=== PATIENT | male | born 1955 | race Hispanic/Latino ===

== ENCOUNTER 2016-09-21 22:11 | Observation (INO) | payer OTHER ==
--- NOTE | 2016-09-21 22:52 | ED PDOC ---
HPI: Chest Pain Time Seen by Provider: 09/21/16 22:31 Chief Complaint (Nursing): Palpitations Chief Complaint (Provider): plapitations History Per: Patient Additional Complaint(s): 61 yo male, PMH of Bradycardia, Lymphoma, Thyroidectomy and repair of a carotid dissection,presents to ED with complaints of developing Palpitations, nausea and chest discomfort around 5 pm. Pt reports that the discomfort has resolved; however, the palpitations remain intermittent. No SOB, no diaphoresis. Pt took 1 81 mg tab Aspirin [employer] Past Medical History Reviewed: Nursing Documentation, Vital Signs Vital Signs: Last Vital Signs Temp 98.5 F 09/21/16 22:26 Pulse 57 L 09/21/16 22:26 Resp 16 09/21/16 22:26 BP 141/94 H 09/22/16 00:13 Pulse Ox 100 09/21/16 22:52 - Medical History PMH: Hypothyroidism Other PMH: Lynphoma - Surgical History Surgical History: Carotid Endarterectomy Other surgeries: thyroidectomy - Family History Family History: States: [place], Other (Sister with Pacemaker s/p syncopal episodes) - Living Arrangements Living Arrangements: With Family - Social History Current smoker - smoking cessation education provided: No Ex-Smoker (has not smoked in the last 12 months): Yes (quit in 1982) Alcohol: Social Drugs: Denies - Home Medications Home Medications: Ambulatory Orders Medication Instructions Recorded Levothyroxine [Synthroid] 1 tab PO DAILY 09/21/16 - Allergies Allergies/Adverse Reactions: Allergies Allergy/AdvReac Type Severity Reaction Status Date / Time No Known Allergies Allergy Verified 09/21/16 22:26 MANJINDER Risk Score for UA/NSTEMI - MANJINDER Risk Score Age > 64: NO 3 or more CAD Risk Factors: NO Known CAD (Stenosis greater than 50%): NO Aspirin use in past 7 days: YES Severe Angina: NO EKG ST changes greater than 0.5mm: NO Positive Cardiac Marker: NO MANJINDER Score: 1 Risk %: 5% Curb-65 Severity Score - CURB-65 Severity Score Confusion: No Bun >19mg/dl (>7mmol/L): No Respiratory Rate greater than/equal to 30: No Systolic BP <90 or Diastolic BP less than/equal 60mmHg: No Age >64: No Curb-65 Score: 0 Percentage 30-day mortality: 0.6% Wells Criteria for PE - Wells Criteria for Pulmonary Embolism Clinical Signs and Symptoms of DVT: No P.E is #1 Diagnosis, or Equally Likely: No Heart Rate >100: No Immobilization at least 3 days;Surgery previous 4 weeks: No Previous, objectively diagnosed PE or DVT: No Hemoptysis: No Malignancy w/treatment within 6 months, or palliative: No Total Score: 0 Review of Systems ROS Statement: Except As Marked, All Systems Reviewed And Found Negative Cardiovascular: Positive for: Chest Pain Physical Exam - Reviewed Nursing Documentation Reviewed: Yes Vital Signs Reviewed: Yes - Physical Exam Appears: Positive for: Well, Non-toxic, No Acute Distress Head Exam: Positive for: ATRAUMATIC, NORMAL INSPECTION, NORMOCEPHALIC Skin: Positive for: Normal Color, Warm, DRY Eye Exam: Positive for: EOMI, Normal appearance, PERRL ENT: Positive for: Normal ENT Inspection Neck: Positive for: Normal, Painless ROM Cardiovascular/Chest: Positive for: Regular Rate, Rhythm Respiratory: Positive for: CNT, Normal Breath Sounds Gastrointestinal/Abdominal: Positive for: Normal Exam, Bowel Sounds, Soft Back: Positive for: Normal Inspection Extremity: Positive for: Normal ROM Neurologic/Psych: Positive for: Alert, Oriented - Laboratory Results Result Diagrams: 09/21/16 23:20 09/21/16 23:20 - ECG O2 Sat by Pulse Oximetry: 100 Medical Decision Making Medical Decision Making: Pt placed on vehicle monitor technician, vitals remain stable P: 52 BP: 148/75 POX: 98% on RA EKG: SB at 57 bpm, no LVH, no [place] deviation, no acute ST changes, as read by ED MD Pt without complaints of pain at this time, analgesics withheld. Pt administered Zofran for pain. CBC and COMP resulted WNL Troponin (-) TSH 1.58 ED MD, Dr. Saez, presented to see and evlauate Pt at beside. Agreed with tele- obs at this time. Pt's PMD if out of area, call placed to [facility]. Arrangements made for tele- obs. Cardiac consult placed with Dr. Barreto. Disposition - Clinical Impression Clinical Impression: Palpitations - Patient ED Disposition Is Patient to be Admitted: Yes - Disposition Disposition Time: 01:08 Condition: STABLE - Pt Status Changed To: Hospital Disposition Of: Observation - POA Present On Arrival: None
[2016-09-21 23:44] LABS: BASO % 0.4 % (0.0-2.0); EOS # 0.1 K/uL (0.0-0.7); EOS % 1.8 % (0.0-4.0); HEMATOCRIT 46.7 % (35.0-51.0); LYMPH # 2.2 K/uL (1.0-4.3); LYMPH % 36.7 % (20.0-40.0); MEAN CELL VOLUME 85.3 fl (80.0-94.0); MEAN CORPUSCULAR HEMOGLOBIN 28.4 pg (27.0-31.0); MEAN CORPUSCULAR HGB CONC 33.3 g/dL (33.0-37.0); MEAN PLATELET VOLUME 9.3 fl (7.2-11.7); MONO # 0.6 K/uL (0.0-0.8); MONO % 9.8 % (0.0-10.0); NEUT # 3.1 K/uL (1.8-7.0); NEUT % 51.3 % (50.0-75.0); NRBC % 0.1 % (0.0-0.0); RED CELL DISTRIBUTION WIDTH 13.7 % (11.5-14.5)
[2016-09-21 23:45] LABS: RBC URINE < 1 /hpf (0-3); URINE BILIRUBIN NEGATIVE (NEGATIVE); URINE BLOOD NEGATIVE (NEGATIVE); URINE COLOR STRAW (YELLOW); URINE GLUCOSE (UA) NEG (Normal); URINE KETONE NEGATIVE (NEGATIVE); URINE LEUKOCYTE ESTERASE NEG Leu/uL (Negative); URINE PROTEIN NEGATIVE (NEGATIVE); URINE UROBILINOGEN 0.2-1.0 mg/dL (0.2-1.0); WBC URINE < 1 /hpf (0-5)
[2016-09-21 23:54] LABS: ALB/GLOB RATIO 1.3 (1.0-2.1); ALKALINE PHOSPHATASE 73 U/L (38-126); ALT/SGPT 30 U/L (21-72); AST/SGOT 30 U/L (17-59); BLOOD UREA NITROGEN 21 mg/dl (9-20); CALCIUM 9.2 mg/dL (8.4-10.2); CARBON DIOXIDE 27 mmol/L (22-30); CHLORIDE 101 mmol/L (98-107); GFR AFRICAN-AMERICAN > 60; GLUCOSE,RANDOM 89 mg/dL (75-110); SODIUM 138 mmol/l (132-148); TOTAL PROTEIN 8.1 G/DL (6.3-8.2)
[2016-09-22 00:23] LABS: THYROID STIMULATING HORMONE 1.58 mIU/ML (0.46-4.68)
[2016-09-22 01:21] LABS: PARTIAL THROMBOPLASTIN TIME 27.8 SECONDS (23.3-32.5)
[2016-09-22] MEDS ORDERED: Levothyroxine 175 MCG TAB PO SCH (06:30)
[2016-09-22 07:49] LABS: HEMATOCRIT 45.1 % (35.0-51.0); MEAN CELL VOLUME 84.9 fl (80.0-94.0); MEAN CORPUSCULAR HEMOGLOBIN 28.4 pg (27.0-31.0); MEAN CORPUSCULAR HGB CONC 33.5 g/dL (33.0-37.0); RED CELL DISTRIBUTION WIDTH 14.1 % (11.5-14.5); WHITE BLOOD COUNT 5.3 K/uL (4.8-10.8)
[2016-09-22 08:04] LABS: BLOOD UREA NITROGEN 17 mg/dl (9-20); CALCIUM 8.8 mg/dL (8.4-10.2); CARBON DIOXIDE 28 mmol/L (22-30); CHLORIDE 103 mmol/L (98-107); GFR AFRICAN-AMERICAN > 60; GLUCOSE,RANDOM 86 mg/dL (75-110); POTASSIUM 3.9 MMOL/L (3.6-5.0); SODIUM 138 mmol/l (132-148)
--- NOTE | 2016-09-22 08:27 | RAD ---
PROCEDURE: CHEST RADIOGRAPH, 1 VIEW HISTORY: cp COMPARISON: None available. FINDINGS: LUNGS: Clear. PLEURA: No pneumothorax or pleural fluid seen. CARDIOVASCULAR: Normal. OSSEOUS STRUCTURES: No significant abnormalities. VISUALIZED UPPER ABDOMEN: Normal. OTHER FINDINGS: None. IMPRESSION: No focal infiltrate or CHF.
[2016-09-22 08:32] LABS: THYROID STIMULATING HORMONE 1.88 mIU/ML (0.46-4.68)
[2016-09-22 09:08] VITALS: O2SAT 97
--- NOTE | 2016-09-22 10:32 | CP.PCM.HP ---
History of Present Illness - History of Present Illness History of Present Illness: pt admitted for cp, palpititons and nausea, had had these episodes in past and pmd has pt scheudled for halter in the next couple days. had bradycardia in hospital-lowest 49. at present sitting in bed eating w/o cp, palpitations, distress, asking to be dc. trop x 2 negative. no copmalints. seen by dr collins-cardio h/o lyphoma, controlled hypothyroidism s/p thyroidectomy, carotid repair Present on Admission - Present on Admission Any Indicators Present on Admission: No Review of Systems - Cardiovascular Cardiovascular: As Per HPI, Chest Pain, Palpitations - Gastrointestinal Gastrointestinal: As Per HPI, Nausea Past Patient History - Past Medical History & Family History Past Medical History?: Yes - Past Social History Smoking Status: Former Smoker - CARDIAC Hx Cardiac Disorders: Yes Other/Comment: Bradycardia - PULMONARY Hx Respiratory Disorders: No - NEUROLOGICAL Hx Neurological Disorder: No - HEENT Hx HEENT Problems: No - RENAL Hx Chronic Kidney Disease: No - ENDOCRINE/METABOLIC Hx Endocrine Disorders: Yes Hx Hypothyroidism: Yes - HEMATOLOGICAL/ONCOLOGICAL Hx Blood Disorders: Yes - INTEGUMENTARY Hx Dermatological Problems: No - MUSCULOSKELETAL/RHEUMATOLOGICAL Hx Musculoskeletal Disorders: No Hx Falls: No - GASTROINTESTINAL Hx Gastrointestinal Disorders: No - GENITOURINARY/GYNECOLOGICAL Hx Genitourinary Disorders: No - PSYCHIATRIC Hx Psychophysiologic Disorder: No Hx Substance Use: No - SURGICAL HISTORY Hx Surgeries: Yes Hx Carotid Endarterectomy: Yes - ANESTHESIA Hx Anesthesia: Yes Hx Anesthesia Reactions: No Hx Malignant Hyperthermia: No Meds Home Medications: Home Medication List Medication Instructions Recorded Confirmed Type Aspirin [Aspirin Chewable] 81 mg PO DAILY #30 chew 09/22/16 Rx Allergies/Adverse Reactions: Allergies Allergy/AdvReac Type Severity Reaction Status Date / Time No Known Allergies Allergy Verified 09/21/16 22:26 Physical Exam - Constitutional Appears: Well, Non-toxic, No Acute Distress - Head Exam Head Exam: ATRAUMATIC, NORMAL INSPECTION, NORMOCEPHALIC - Eye Exam Eye Exam: EOMI, Normal appearance, PERRL Pupil Exam: NORMAL ACCOMODATION, PERRL - ENT Exam ENT Exam: Mucous Membranes Moist, Normal Exam - Neck Exam Neck exam: Positive for: Normal Inspection - Respiratory Exam Respiratory Exam: Clear to Auscultation Bilateral, NORMAL BREATHING PATTERN - Cardiovascular Exam Cardiovascular Exam: Bradycardia, REGULAR RHYTHM, RRR, +S1, +S2 - GI/Abdominal Exam GI & Abdominal Exam: Normal Bowel Sounds, Soft. absent: Tenderness - Extremities Exam Extremities exam: Positive for: normal inspection - Back Exam Back exam: NORMAL INSPECTION - Neurological Exam Neurological exam: Alert, CN II-XII Intact, Normal Gait, Oriented x3, Reflexes Normal - Psychiatric Exam Psychiatric exam: Normal Affect, Normal Mood - Skin Skin Exam: Dry, Intact, Normal Color, Warm Results - Vital Signs Recent Vital Signs: Last Vital Signs Temp 98.3 F 09/22/16 09:07 Pulse 52 L 09/22/16 09:07 Resp 20 09/22/16 09:07 BP 142/84 09/22/16 09:07 Pulse Ox 97 09/22/16 09:07 - Labs Result Diagrams: 09/22/16 07:00 09/22/16 07:00 Labs: Laboratory Results - last 24 hr 09/22/16 07:00 WBC 5.3 RBC 5.31 Hgb 15.1 Hct 45.1 MCV 84.9 MCH 28.4 MCHC 33.5 RDW 14.1 Plt Count 150 Sodium 138 Potassium 3.9 Chloride 103 Carbon Dioxide 28 Anion Gap 11 BUN 17 Creatinine 1.0 Est GFR ( Amer) > 60 Est GFR (Non-Af Amer) > 60 Random Glucose 86 Calcium 8.8 Troponin I < 0.0120 TSH 3rd Generation 1.88 Assessment & Plan (1) Palpitations Assessment and Plan: cleared by cardio for dc trops x 2 negative outpt halter w/ primary this week rted prn, meds per med rec Status: Chronic (2) Chest pain Status: Acute (3) DVT prophylaxis Assessment and Plan: scd and ae hose Status: Acute Decision To Admit - Pt Status Changed To: Hospital Disposition Of: Observation - . Bed Request Type: Telemetry Admitting Physician: Ally Rodgers
--- NOTE | 2016-09-22 10:44 | CP.PCM.CON ---
History of Present Illness - History of Present Illness History of Present Illness: 61 yo male, PMH of Bradycardia, Lymphoma, Thyroidectomy and repair of a carotid dissection, presents to ED with complaints of developing Palpitations, nausea around 5 pm. No SOB, no diaphoresis. 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 Pt denies chest apin Episodes like this have happened several times in the past follows up with PMD scheduled for w/u EKG: sinus rhythm @ 57 BPM Troponin : neg Past Patient History - Past Medical History & Family History Past Medical History?: Yes - Past Social History Smoking Status: Former Smoker - CARDIAC Hx Cardiac Disorders: Yes Other/Comment: Bradycardia - PULMONARY Hx Respiratory Disorders: No - NEUROLOGICAL Hx Neurological Disorder: No - HEENT Hx HEENT Problems: No - RENAL Hx Chronic Kidney Disease: No - ENDOCRINE/METABOLIC Hx Endocrine Disorders: Yes Hx Hypothyroidism: Yes - HEMATOLOGICAL/ONCOLOGICAL Hx Blood Disorders: Yes - INTEGUMENTARY Hx Dermatological Problems: No - MUSCULOSKELETAL/RHEUMATOLOGICAL Hx Musculoskeletal Disorders: No Hx Falls: No - GASTROINTESTINAL Hx Gastrointestinal Disorders: No - GENITOURINARY/GYNECOLOGICAL Hx Genitourinary Disorders: No - PSYCHIATRIC Hx Psychophysiologic Disorder: No Hx Substance Use: No - SURGICAL HISTORY Hx Surgeries: Yes Hx Carotid Endarterectomy: Yes - ANESTHESIA Hx Anesthesia: Yes Hx Anesthesia Reactions: No Hx Malignant Hyperthermia: No Meds Allergies/Adverse Reactions: Allergies Allergy/AdvReac Type Severity Reaction Status Date / Time No Known Allergies Allergy Verified 09/21/16 22:26 - Medications Medications: Current Medications Aspirin (Aspirin Chewable) 81 mg PO DAILY [facility] Last Admin: 09/22/16 08:35 Dose: 81 mg Levothyroxine Sodium (Levothroid) 137 mcg PO DAILY@0630 [facility] Nitroglycerin (Nitrostat Sl Tab) 0.4 mg SL Q5M PRN PRN Reason: chest pain Physical Exam - Constitutional Appears: Well - Respiratory Exam Respiratory Exam: NORMAL BREATHING PATTERN - Cardiovascular Exam Cardiovascular Exam: REGULAR RHYTHM Results - Vital Signs Recent Vital Signs: Last Vital Signs Temp 98.3 F 09/22/16 09:07 Pulse 52 L 09/22/16 09:07 Resp 20 09/22/16 09:07 BP 142/84 09/22/16 09:07 Pulse Ox 97 09/22/16 09:07 - Labs Result Diagrams: 09/22/16 07:00 09/22/16 07:00 Labs: Laboratory Results - last 24 hr 09/22/16 07:00 WBC 5.3 RBC 5.31 Hgb 15.1 Hct 45.1 MCV 84.9 MCH 28.4 MCHC 33.5 RDW 14.1 Plt Count 150 Sodium 138 Potassium 3.9 Chloride 103 Carbon Dioxide 28 Anion Gap 11 BUN 17 Creatinine 1.0 Est GFR ( Amer) > 60 Est GFR (Non-Af Amer) > 60 Random Glucose 86 Calcium 8.8 Troponin I < 0.0120 TSH 3rd Generation 1.88 Assessment & Plan (1) Palpitations Assessment and Plan: Pt's Hr while here has been NSR No arrhythmia noted lowest HR was 49 BPM Pt may be discharged at any time Status: Chronic
[2016-09-22] MEDS ORDERED: THYROXINE 137 MCG PO SCH (10:45)
--- NOTE | 2016-09-22 11:01 | CP.PCM.DIS ---
Provider - Provider Date of Admission: 09/22/16 00:39 Attending physician: Ally Rodgers MD Time Spent in preparation of Discharge (in minutes): 15 Hospital Course - Lab Results Lab Results: Most Recent Lab Values WBC 5.3 K/uL (4.8-10.8) 09/22/16 07:00 RBC 5.31 Mil/uL (4.40-5.90) 09/22/16 07:00 Hgb 15.1 g/dL (12.0-18.0) 09/22/16 07:00 Hct 45.1 % (35.0-51.0) 09/22/16 07:00 MCV 84.9 fl (80.0-94.0) 09/22/16 07:00 MCH 28.4 pg (27.0-31.0) 09/22/16 07:00 MCHC 33.5 g/dL (33.0-37.0) 09/22/16 07:00 RDW 14.1 % (11.5-14.5) 09/22/16 07:00 Plt Count 150 K/uL (130-400) 09/22/16 07:00 MPV 9.3 fl (7.2-11.7) 09/21/16 23:20 Neut % (Auto) 51.3 % (50.0-75.0) 09/21/16 23:20 Lymph % (Auto) 36.7 % (20.0-40.0) 09/21/16 23:20 Mcdonald % (Auto) 9.8 % (0.0-10.0) 09/21/16 23:20 Eos % (Auto) 1.8 % (0.0-4.0) 09/21/16 23:20 Baso % (Auto) 0.4 % (0.0-2.0) 09/21/16 23:20 Neut # 3.1 K/uL (1.8-7.0) 09/21/16 23:20 Lymph # 2.2 K/uL (1.0-4.3) 09/21/16 23:20 Mcdonald # 0.6 K/uL (0.0-0.8) 09/21/16 23:20 Eos # 0.1 K/uL (0.0-0.7) 09/21/16 23:20 Baso # 0.0 K/uL (0.0-0.2) 09/21/16 23:20 PT 10.6 SECONDS (9.6-11.2) 09/21/16 23:20 INR 1.02 (0.92-1.08) 09/21/16 23:20 APTT 27.8 SECONDS (23.3-32.5) 09/21/16 23:20 D-Dimer, Quantitative 0.19 mg/L FEU (0-0.50) 09/21/16 23:20 Sodium 138 mmol/l (132-148) 09/22/16 07:00 Potassium 3.9 MMOL/L (3.6-5.0) 09/22/16 07:00 Chloride 103 mmol/L (98-107) 09/22/16 07:00 Carbon Dioxide 28 mmol/L (22-30) 09/22/16 07:00 Anion Gap 11 (10-20) 09/22/16 07:00 BUN 17 mg/dl (9-20) 09/22/16 07:00 Creatinine 1.0 mg/dL (0.8-1.5) 09/22/16 07:00 Est GFR ( Amer) > 60 09/22/16 07:00 Est GFR (Non-Af Amer) > 60 09/22/16 07:00 Random Glucose 86 mg/dL (75-110) 09/22/16 07:00 Calcium 8.8 mg/dL (8.4-10.2) 09/22/16 07:00 Total Bilirubin 1.0 mg/dl (0.2-1.3) 09/21/16 23:20 AST 30 U/L (17-59) 09/21/16 23:20 ALT 30 U/L (21-72) 09/21/16 23:20 Alkaline Phosphatase 73 U/L (38-126) 09/21/16 23:20 Troponin I < 0.0120 ng/mL (0.00-0.120) 09/22/16 07:00 NT-Pro-B Natriuret Pep 62.0 pg/ml (0-900) 09/21/16 23:20 Total Protein 8.1 G/DL (6.3-8.2) 09/21/16 23:20 Albumin 4.6 g/dL (3.5-5.0) 09/21/16 23:20 Globulin 3.5 gm/dL (2.2-3.9) 09/21/16 23:20 Albumin/Globulin Ratio 1.3 (1.0-2.1) 09/21/16 23:20 TSH 3rd Generation 1.88 mIU/ML (0.46-4.68) 09/22/16 07:00 Urine Color Straw (YELLOW) 09/21/16 23:20 Urine Clarity Clear (Clear) 09/21/16 23:20 Urine pH 6.0 (5.0-8.0) 09/21/16 23:20 Ur Specific Leiter 1.008 (1.003-1.030) 09/21/16 23:20 Urine Protein Negative mg/dL (NEGATIVE) 09/21/16 23:20 Urine Glucose (UA) Neg mg/dL (Normal) 09/21/16 23:20 Urine Ketones Negative mg/dL (NEGATIVE) 09/21/16 23:20 Urine Blood Negative (NEGATIVE) 09/21/16 23:20 Urine Nitrate Negative (NEGATIVE) 09/21/16 23:20 Urine Bilirubin Negative (NEGATIVE) 09/21/16 23:20 Urine Urobilinogen 0.2-1.0 mg/dL (0.2-1.0) 09/21/16 23:20 Ur Leukocyte Esterase Neg Jana/uL (Negative) 09/21/16 23:20 Urine RBC (Auto) < 1 /hpf (0-3) 09/21/16 23:20 Urine Microscopic WBC < 1 /hpf (0-5) 09/21/16 23:20 Discharge Exam - Head Exam Head Exam: ATRAUMATIC, NORMAL INSPECTION, NORMOCEPHALIC Discharge Plan - Discharge Medications Prescriptions: Aspirin [Aspirin Chewable] 81 mg PO DAILY #30 chew - Follow Up Plan Condition: STABLE Disposition: HOME/ ROUTINE Additional Instructions: cleared by cardio fianl dx-cp, palpitations f/u pmd, halter in am, rted prn, meds per med rec observe for episoes of events that brought to ER activity as hal
[2016-09-22 12:03] VITALS: BP 132/82; PULSE 58; RESP 18; TEMP 97.6
--- NOTE | 2016-09-23 09:42 | CARD ---
APPROVED REPORT EKG Measurement Heart [id number] <Conclusion> Sinus bradycardia Otherwise normal ECG
== END 2016-09-22 12:32 | disposition home or self-care (01) ==
LOC: H.ER 22:11 → H.ERHOLD 09-22 00:39 → H.TEL 09-22 01:39
PROVIDERS: ADMIT Family Medicine; ATTEND Family Medicine
DX: R00.2 Palpitations (principal); E03.9 Hypothyroidism, unspecified; Z82.49 Family history of ischemic heart disease and other diseases of the circulatory system; Z87.891 Personal history of nicotine dependence; Z85.72 Personal history of non-Hodgkin lymphomas; Z79.82 Long term (current) use of aspirin; R00.1 Bradycardia, unspecified